=== PATIENT | male | born 1950 | race Caucasian/White ===

== ENCOUNTER 2021-05-09 05:32 | Emergency (ER) | payer OTHER, MEDICARE, SELFPAY ==
[2021-05-09 05:33] VITALS: TEMP 37.1; BMI 25.1
--- NOTE | 2021-05-09 05:34 | XRR_ITS ---
PROCEDURE INFORMATION: Exam: XR Chest Exam date and time: 05/09/2021 5:34 AM Age: 71 years old Clinical indication: Pain; Radiating; Prior surgery; Surgery date: 6+ months; Surgery type: Cabg, stents; Additional info: Cp TECHNIQUE: Imaging protocol: XR of the chest. Views: 1 view. COMPARISON: No relevant prior studies available. FINDINGS: Lungs: There is a well-defined oval density measuring 4.6 cm, projecting over the right mid lung. There is mildly increased lung markings. There is a small bilateral pleural effusions. No pneumothorax. Pleural spaces: See Lungs finding. Heart/Mediastinum: The patient is status post CABG. No cardiomegaly. Bones/joints: Median sternotomy changes seen. Degenerative changes of the spine seen. XR/XR chest 1V portable [id number] IMPRESSION: 1. Imaging findings suggestive of mild pulmonary congestion with small bilateral pleural effusions. 2. Well-defined density projecting over the right mid lung. Further evaluation with CT chest is recommended.
--- NOTE | 2021-05-09 05:35 | ECG_ITS ---
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 Measurements Intervals [place] Rate: 80 P: 64 [place]: 201 QRS: -16 QRSD: 123 T: 87 QT: 393 QTc: 456 Interpretive Statements SINUS RHYTHM WITH OCCASIONAL VENTRICULAR PREMATURE COMPLEXES MODERATE INTRAVENTRICULAR CONDUCTION DELAY [110+ ms QRS DURATION] NONSPECIFIC T-WAVE ABNORMALITY No previous ECG available for comparison Electronically Signed On 05-09-2021 12:07:59 CDT by Simone Swartz M.D. [email or web address] Nano/store/[id number] f
[2021-05-09 05:39] VITALS: BP 154/98; PULSE 81; O2SAT 98
[2021-05-09 05:58] LABS: Basophils % 0.3 %; Eosinophils # 0.1 10^3/uL (0.0-0.8); Eosinophils % 1.4 %; Hematocrit 39.1 % (42.0-52.0); Hemoglobin 13.1 g/dL (11.7-16.6); Lymphocytes # 2.5 10^3/uL (0.8-4.8); Lymphocytes % 28.5 %; Mean Corpuscular HGB Conc 33.5 g/dL (30.0-36.0); Mean Corpuscular Hemoglobin 33.9 pg (28.0-34.0); Monocytes # 0.8 10^3/uL (0.2-0.9); Monocytes % 9.2 %; Neutrophils # 5.26 10^3/uL (1.8-7.7); Neutrophils % 60.3 %; Nucleated Red Blood Cells % 0 %; Platelet Count 249 10^3/cmm (130-400); Red Blood Count 3.87 10^6/uL (4.1-5.3); Red Cell Distribution Width 12.7 % (12.1-15.1); White Blood Count 8.7 10^3/uL (4.0-10.0)
[2021-05-09 06:10] LABS: Alanine Aminotransferase 8 U/L (0-41); Alkaline Phosphatase 48 IU/L (40-130); Anion Gap 14.5 (5-19); Aspartate Amino Transferase 11 U/L (0-40); Blood Urea Nitrogen 15 mg/dL (8-23); Calcium 8.8 mg/dL (8.5-10.5); Carbon Dioxide 27 mmol/L (22-29); Chloride 102 mmol/L (98-107); Creatinine Clr Calc Pharmacy 87.8812; Globulin 1.6 g/dL (1.3-4.6); Glucose 124 mg/dL (65-115); Osmolality Calculated 292 mOsm/kg (285-295); Potassium 3.5 mmol/L (3.5-5.1); Sodium 140 mmol/L (136-145); Total Bilirubin 0.3 mg/dL (0.15-1.2); Total Protein 5.6 g/dL (6.6-8.7)
[2021-05-09 06:11] LABS: Troponin(5th) Baseline 34 ng/L (0-15)
--- NOTE | 2021-05-09 06:13 | W.ED.CHESTPA ---
HPI - Chest Pain General: Chief Complaint: Chest Pain Stated Complaint: CHEST PAIN Time Seen by Provider: 05/09/21 05:37 History of Present Illness: HPI narrative: CC: Chest Pain HPI: This is a [71] yo patient hx of HTN, CAD s/ p stent x 5/CABG, DM presenting to the ED w/ acute onset intermittent substernal chest pain x 2 hours. Pain is a very typical prior presentation of cardiac chest pain which started suddenly at 4am relieved with nitroglycerin. Pain is not tearing in nature and does not radiate to the back. Endorse nausea but has no associated with vomiting or decreased PO intake. Denies any recent sympathomimetic drug use. Patient denies any cough. Denies palpitations, syncope symptoms. Pain not positional. Norecent immobility, surgery, unilateral leg swelling, or prior PE. Patient denies any orthopnea, paroxysmal nocturnal dyspnea, weight gain, or increased leg swellings. Currently chest pain free. En route, rescue gave patient ASA 325mg. Onset: 2 hrs ago Duration: ongoing for the last 2 hrs Location: home Severity: moderate Review of Systems Narrative: Constitutional: No fever, no chills. HEENT: No vision changes, no sore throat. CV: +chest pain, no palpitations. PULM: No cough, +dyspnea. GI: No abdominal pain, no N/V/D. : No dysuria, no frequency, no hematuria. MSKEL: No arthralgias, no edema. SKIN: No new rashes, no lesions. NEURO: No headache, no focal weakness. HEME: No easy bleeding or bruising. PSYCH: No change in mood or affect. Physical Exam Narrative: EXAM NARRATIVE: Head: Atraumatic, normocephalic Eyes: PERRL, EOMI, conjunctiva without injection ENT: Throat without erythema, lesions or exudate, MMM NECK: Supple, trachea midline, no JVD LUNGS: LCTA CV: RRR, S1,S2, no murmurs, rubs, gallops. 2+ peripheral pulses in UEs ABDOMEN: Soft, nontender, nondistended, BS x4, no rigidity, no guarding, no rebound EXTREMITY: Normal ROM, no pitting edema, no calf tenderness to palpation SKIN: No rash or erythema NEURO: Awake and alert. No focal motor deficits. PSYCH: Normal mood and affect. Course Vital Signs: Vital signs: Vital Signs Temperature 98.8 F 05/09/21 05:33 Pulse Rate 78 05/09/21 07:01 Respiratory Rate 16 05/09/21 07:01 Blood Pressure 124/74 05/09/21 07:01 Pulse Oximetry 97 05/09/21 07:01 MDM - Chest Pain MDM Narrative: Medical decision making narrative: [71]yo patient w/ extensive cardiac hx presenting to the ED With acute substernal chest pain X 2 hrs with hx of similar prior pain. Currently mild chest pain. Patient receives most of his cardiac care at [facility] in [place], [place]. Given History And Exam today I have moderate to high suspicion for ACS/UA/NSTEMI. Today, I have suspicion for pneumothorax, pneumonia, pulmonary embolus, tamponade, aortic dissection or other emergent problem as a cause for this presentation. ECG did not show any signs of acute STEMI. Workup: ECG, CXR, CBC, BMP, Troponin Findings: ECG: No overt evidence of STEMI, hyperacute T waves, localizable STD or T wave inversions. No evidence of Brugada?s sign, delta wave, epsilon wave, significantly prolonged QTc, or malignant arrhythmia. No Q waves. Troponin: 34 unclear baseline. Other Labs unremarkable for emergent problems. CXR: Without PTX, PNA, or widened mediastinum HEART score: [7:04] On reassessment, the patient is currently chest pain free. S/p aspirin 325mg en route. Will defer antiplatelet and anticoagulation to the inpatient team given unknown basaeline troponin level. Initial troponin mildy elevated at 34. Pending repeat 2 hr troponin. HDS, AAOx3, no signs of respiratory distress, without refractory chest pain, no signs of malignant dysrhythmia on monitoring specialist (VT/VF). Disposition: Inpatient admission. Lab Data: Labs: Lab Results 05/09/21 05/09/21 05/09/21 Range/Units 05:20 05:20 05:20 WBC 8.7 (4.0-10.0) 10^3/ uL RBC 3.87 L (4.1-5.3) 10^6/u L Hgb 13.1 (11.7-16.6) g/dL Hct 39.1 L (42.0-52.0) % MCV 101.0 H (80-94) fL MCH 33.9 (28.0-34.0) pg MCHC 33.5 (30.0-36.0) g/dL RDW 12.7 (12.1-15.1) % Plt Count 249 (130-400) 10^3/c mm MPV 10.0 (7.4-10.4) fL Neut % (Auto) 60.3 % Lymph % (Auto) 28.5 % [place] % (Auto) 9.2 % Eos % (Auto) 1.4 % Baso % (Auto) 0.3 % Neut # (Auto) 5.26 (1.8-7.7) 10^3/u L Lymph # (Auto) 2.5 (0.8-4.8) 10^3/u L [place] # (Auto) 0.8 (0.2-0.9) 10^3/u L Eos # (Auto) 0.1 (0.0-0.8) 10^3/u L Baso # (Auto) 0.0 (0.0-0.1) 10^3/u L Nucleated RBC % (a uto) 0 % Nucleated RBCs # 0.0 /100WBC Sodium 140 (136-145) mmol/L Potassium 3.5 (3.5-5.1) mmol/L Chloride 102 (98-107) mmol/L Carbon Dioxide 27 (22-29) mmol/L Anion Gap 14.5 (5-19) BUN 15 (8-23) mg/dL Creatinine 0.5 L (0.7-1.2) mg/dL GFR Calculation Not Reportable Glucose 124 H (65-115) mg/dL Calculated Osmolal ity 292 (285-295) mOsm/k g Calcium 8.8 (8.5-10.5) mg/dL Total Bilirubin 0.3 (0.15-1.2) mg/dL AST 11 (0-40) U/L ALT 8 (0-41) U/L Alkaline Phosphata se 48 (40-130) IU/L Troponin T Baselin e 34 H (0-15) ng/L Total Protein 5.6 L (6.6-8.7) g/dL Albumin 4.0 (3.5-5.2) g/dL Globulin 1.6 (1.3-4.6) g/dL Imaging Data^: Other Imaging: Radiologist's impression: [facility] [facility].[place], [place] [address]QCbh ReportSigned Patient: Tejinder Rivera #: [id number]: [id number]#:[id number]/Sex: 71 / MADM Date: 05/09/21Loc: ERRoom/Bed:Attending Dr: Ordering Provider/Ordering MD: Halina Reece MD Date of Service: 05/09/21 Procedure(s): XR chest 1V portable [id number] Accession Number(s): [id number] Report Number: [id number] PROCEDURE INFORMATION: Exam: XR Chest Exam date and time: 05/09/2021 5:34 AM Age: 71 years old Clinical indication: Pain; Radiating; Prior surgery; Surgery date: 6+ months; Surgery type: Cabg, stents; Additional info: Cp TECHNIQUE: Imaging protocol: XR of the chest. Views: 1 view. COMPARISON: No relevant prior studies available. FINDINGS: Lungs: There is a well-defined oval density measuring 4.6 cm, projecting over the right mid lung. There is mildly increased lung markings. There is a small bilateral pleural effusions. No pneumothorax. Pleural spaces: See Lungs finding. Heart/Mediastinum: The patient is status post CABG. No cardiomegaly. Bones/joints: Median sternotomy changes seen. Degenerative changes of the spine seen. XR/XR chest 1V portable [id number] IMPRESSION: 1. Imaging findings suggestive of mild pulmonary congestion with small bilateral pleural effusions. 2. Well-defined density projecting over the right mid lung. Further evaluation with CT chest is recommended. Dictated By:Adela Sanchez By:Adela Sanchez Date/Time:05/09/21 0644DD/ Discharge Plan Discharge Patient Disposition: Admitted As Inpatient Clinical Impression: Chest pain, Angina pectoris, unstable Condition: Stable Coding Level of Care Code ED Polygraph Technician for Radha Gupta
--- NOTE | 2021-05-09 06:21 | ECG_ITS ---
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 Measurements Intervals [place] Rate: 84 P: 61 [place]: 208 QRS: -24 QRSD: 123 T: 86 QT: 395 QTc: 467 Interpretive Statements SINUS RHYTHM POSSIBLE LEFT ATRIAL ENLARGEMENT [-0.1mV P WAVE IN V1/V2] SEPTAL MYOCARDIAL INFARCTION [40+ ms Q WAVE IN V1/V2], OF INDETERMINATE AGE Compared to ECG 05/09/2021 05:32:56 Myocardial infarct finding now present Intraventricular conduction delay no longer present T-wave abnormality no longer present Electronically Signed On 05-09-2021 12:07:52 CDT by Simone Swartz M.D. [id number] f
[2021-05-09 07:01] VITALS: BP 124/74; PULSE 78; RESP 16; O2SAT 97
[2021-05-09 08:05] VITALS: BP 122/75; PULSE 81; RESP 18; O2SAT 96
[2021-05-09 08:26] VITALS: BP 122/75; PULSE 78; RESP 18; TEMP 37.1; O2SAT 96
[2021-05-09] MEDS: clopidogrel 300 mg Tablet 600 MG PO (08:36)
[2021-05-09] MEDS: heparin drip 25,000 UNIT/500 ML PREMIX 19.05 UNIT IV (08:37)
[2021-05-09] MEDS: heparin 5,000 unit/mL INJ 1 mL 5600 UNIT IVP (08:42)
[2021-05-09 09:05] VITALS: BP 145/74; PULSE 79; RESP 18; O2SAT 97
[2021-05-09 09:15] LABS: Troponin 5 2HR 39.63 ng/L (0-15); Troponin 5 2HR Delta 5.63 ABS# (0-10)
== END 2021-05-09 09:36 ==
PROVIDERS: Emergency Medicine; Emergency Provider Emergency Medicine
DX: R07.9 Chest pain, unspecified (principal); I20.0 Unstable angina
CPT/HCPCS: 71045; 80053; 84484; 85025; 93005; 96365; 96375; 99291; J1644

== ENCOUNTER 2021-06-30 13:41 | Outpatient (CLI) | payer OTHER, MEDICARE, SELFPAY ==
--- NOTE | 2021-06-30 13:47 | XR_ITS ---
WS: [id number] Exam: XR KUB [id number] Date/Time of Exam: 06/30/2021 1:48 PM Reason For Exam: CALCULUS OF KIDNEY There are several small calcifications superimposing both kidneys probably renal stones. No bowel obs truction or free air noted. No sign of organ enlargement. Degenerative change and mild dextroscoliosi s of the lumbar spine. XR/XR KUB [id number] IMPRESSION: 1. Small calcification superimpose both kidneys most likely representing renal calculi. 2. No acute abdominal process noted.
== END 2021-06-30 13:42 | disposition home or self-care (01) ==
LOC: RAD 13:46
PROVIDERS: PCP Internal Medicine; Visit Provider Urology
DX: N20.0 Calculus of kidney (principal)
CPT/HCPCS: 74018; 81003

== ENCOUNTER 2021-09-25 20:44 | Emergency (ER) | payer OTHER, MEDICARE, SELFPAY ==
[2021-09-25 20:45] VITALS: BP 139/102; PULSE 66; RESP 18; TEMP 36.6; O2SAT 94; BMI 24.3
--- NOTE | 2021-09-25 20:47 | XRR_ITS ---
PROCEDURE INFORMATION: Exam: XR Chest Exam date and time: 09/25/2021 8:47 PM Age: 71 years old Clinical indication: Pain; Angina pectoris; Prior surgery; Surgery date: 6+ months; Additional info: Cp TECHNIQUE: Imaging protocol: XR of the chest. Views: 1 view. COMPARISON: CR XR chest 1V portable [id number] 05/09/2021 5:38 AM FINDINGS: Lungs: Stable 4.5 cm oval density in the right mid lung. Linear atelectasis or scarring in the lung bases. Emphysema. Pleural spaces: Unremarkable. No pleural effusion. No pneumothorax. Heart/Mediastinum: Unremarkable. No cardiomegaly. Bones/joints: Median sternotomy changes. XR/XR chest 1V portable [id number] IMPRESSION: 1. No acute finding. 2. Stable oval density in the right mid lung. Correlation with the prior CT chest on 05/05/2021 is recommended. These images and report were not made available.
--- NOTE | 2021-09-25 20:47 | ECG_ITS ---
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 Measurements Intervals [place] Rate: 78 P: 48 [place]: 212 QRS: -14 QRSD: 138 T: 0 QT: 433 QTc: 496 Interpretive Statements SINUS RHYTHM WITH FIRST DEGREE AV BLOCK WITH OCCASIONAL VENTRICULAR PREMATURE COMPLEXES INTRAVENTRICULAR CONDUCTION DELAY [130+ ms QRS DURATION] SEPTAL MYOCARDIAL INFARCTION , PROBABLY OLD [40+ ms Q WAVE IN V1/V2] ST depression inferolateral leads, consider ischemia Compared to ECG 05/09/2021 06:26:35 First degree AV block now present Intraventricular conduction delay now present Myocardial infarct finding still present Electronically Signed On 09-27-2021 15:39:20 MEDICAL TECHNOLOGIST BLOOD BANK by Justyna Wooten M.D. [email or web address] Technologies[email or web address] [email or web address]/[id number]
[2021-09-25 21:01] LABS: Basophils # 0.1 10^3/uL (0.0-0.1); Basophils % 0.3 %; Eosinophils # 0.1 10^3/uL (0.0-0.8); Eosinophils % 0.6 %; Hemoglobin 12.5 g/dL (11.7-16.6); Lymphocytes # 2.2 10^3/uL (0.8-4.8); Lymphocytes % 11.6 %; Mean Corpuscular HGB Conc 33.8 g/dL (30.0-36.0); Mean Corpuscular Hemoglobin 33.3 pg (28.0-34.0); Mean Corpuscular Volume 98.7 fl (80-94); Mean Platelet Volume 10.5 fL (7.4-10.4); Monocytes # 1.6 10^3/uL (0.2-0.9); Monocytes % 8.5 %; Neutrophils % 78.5 %; Nucleated Red Blood Cells % 0 %; Platelet Count 222 10^3/cmm (130-400); Red Blood Count 3.75 10^6/uL (4.1-5.3); Red Cell Distribution Width 13.1 % (12.1-15.1); White Blood Count 18.7 10^3/uL (4.0-10.0)
[2021-09-25 21:16] LABS: INR 0.95 (0.8-1.2)
[2021-09-25 21:17] LABS: Partial Thromboplastin Time 26.8 SECONDS (23.9-36.7)
[2021-09-25 21:30] LABS: Troponin(5th) Baseline 456 ng/L (0-15)
[2021-09-25 21:31] LABS: Alanine Aminotransferase 11 U/L (0-41); Albumin Level 4.3 g/dL (3.5-5.2); Alkaline Phosphatase 45 IU/L (40-130); Anion Gap 14.8 (5-19); Aspartate Amino Transferase 36 U/L (0-40); Blood Urea Nitrogen 11 mg/dL (8-23); Calcium 8.4 mg/dL (8.5-10.5); Carbon Dioxide 26 mmol/L (22-29); Chloride 103 mmol/L (98-107); Creatine Phosphokinase 304 U/L (39-308); Globulin 1.9 g/dL (1.3-4.6); Glucose 128 mg/dL (65-115); NT Pro B Type Natriuretic Pept 1476 pg/mL (0-125); Osmolality Calculated 291 mOsm/kg (285-295); Potassium 3.8 mmol/L (3.5-5.1); Sodium 140 mmol/L (136-145); Total Bilirubin 0.3 mg/dL (0.15-1.2); Total Protein 6.2 g/dL (6.6-8.7)
[2021-09-25 21:36] VITALS: RESP 18; O2SAT 94
[2021-09-25] MEDS: morphine 4 mg/mL SDV 1 mL 2 MG IVP ×2 (21:36→22:29)
[2021-09-25] MEDS: nitroglycerin 1 gm/inch oint Pkt 1 INCH TOPICAL (21:36)
[2021-09-25] MEDS: ondansetron 2 mg/ML SDV 2 mL 4 MG IVP (21:37)
--- NOTE | 2021-09-25 21:56 | ED_ITS ---
HPI - Chest Pain General: Chief Complaint: Chest Pain Stated Complaint: CP Time Seen by Provider: 09/25/21 20:47 History of Present Illness: HPI narrative: 71-year-old gentleman with a history of heart disease. He has had a CABG, 5 stents, and has COPD as well. He presents with 2 to 3 days of chest discomfort, worsening this evening. He has had 6 nitroglycerin at home today with some improvement intermittently. Currently his pain is minimal. MD complaint: chest pain Pertinent past history: coronary artery disease Onset (ago): day(s) Timing of current episode: episodic Prior episodes: Yes Onset: during rest Pain location: substernal, left chest and right chest Pain radiation: none Quality: tightness and aching Relieving factors: nitroglycerin Exacerbating factors: nothing Associated symptoms: Reports diaphoresis, dyspnea and nausea; Deny abdominal pain, fever(s), leg edema, palpitations, syncope or vomiting Treatment prior to arrival: nitroglycerin Review of Systems Const: Reports: diaphoresis; Denies: fever(s) Card: Denies: palpitations or syncope Resp: Reports: dyspnea GI: Reports: nausea; Denies: abdominal pain or vomiting [facility] ED PFSH: Medical History Bilateral renal stones CHF (congestive heart failure) COPD (chronic obstructive pulmonary disease) Diabetes History of asbestosis HTN (hypertension) Hx of hydrocele Right ureteral stone Surgical History History of eyelid surgery Hx of heart artery stent Hx of prostate biopsy HAD 2 BOTH NEGATIVE Hx of vasectomy Family History Mother , AT AGE 83 Diabetes CAD (coronary artery disease) Father , IN HIS 60'S CAD (coronary artery disease) Social History Smoking and tobacco status: current every day smoker Alcohol intake: current Alcohol intake frequency: holidays/special occasions only Marital status: Current occupational status: retired Physical Exam Const: COMMON NORMALS: no acute distress, patient oriented x3 and alert HENMT: COMMON NORMALS: normocephalic and atraumatic HEAD & SCALP: normocephalic and atraumatic Eye: COMMON NORMALS: Equal, round and reactive pupils present and EOMs intact bilaterally PUPIL: Yes Equal, round and reactive pupils present Chest: COMMONS NORMALS: normal inspection of the chest Resp: COMMON NORMALS: normal respiratory effort, No use of accessory muscles and clear to auscultation bilaterally AUSCULTATION: clear to auscultation bilaterally Cardio: COMMON NORMALS: regular rate and regular rhythm RATE: regular rate RHYTHM: regular rhythm GI: COMMON NORMALS: Normal to inspection, nondistended, normoactive bowel sounds present, Soft to palpation and non-tender PALPATION: Yes Soft to palpation Extremity: COMMON NORMALS: normal to inspection and no pedal edema Neuro: COMMON NORMALS: patient oriented x3 SENSORIUM/ORIENTATION: Yes alert Course Consultations: Consultation #1: jovan Vital Signs: Vital signs: Vital Signs Temperature 97.9 F 09/25/21 20:45 Pulse Rate 66 09/25/21 20:45 Respiratory Rate 18 09/25/21 22:29 Blood Pressure 139/102 09/25/21 20:45 Pulse Oximetry 94 09/25/21 21:36 MDM - Chest Pain MDM Narrative: Medical decision making narrative: 71-year-old gentleman with a history of coronary disease. He has had chest discomfort. His EKG does not reveal any ST changes. He does have a very slightly widened QRS. His troponin at arrival is 450. His creatinine is 0.6. This obviously is not a normal [facility] troponin for this patient. His white blood cell count is 18.7. His chest x-ray shows no acute findings. There is a stable oval density in the right midlung. We have no Hotel Lobby Concierge capability this weekend at our hospital due to illness. The patient is [facility] transfer [facility] where he gets care. We will try to make this happen. He has received Plavix 300, Lovenox 70, and has already taken aspirin 325 today. He has Nitropaste on, and is received morphine. His pain is minimal to nothing now. [place] physician has accepted the patient to the cardiac unit. Awaiting a bed number for transfer. Lab Data: Labs: Lab Results 09/25/21 09/25/21 09/25/21 20:20 20:20 20:20 WBC 18.7 10^3/uL H 10 ^3/uL (4.0-10.0) RBC 3.75 10^6/uL L 10 ^6/uL (4.1-5.3) Hgb 12.5 g/dL g/dL (11.7-16.6) Hct 37.0 % L % (42.0-52.0) MCV 98.7 fl H fl (80-94) MCH 33.3 pg pg (28.0-34.0) MCHC 33.8 g/dL g/dL (30.0-36.0) RDW 13.1 % % (12.1-15.1) Plt Count 222 10^3/cmm 10^3 /cmm (130-400) MPV 10.5 fL H fL (7.4-10.4) Neut % (Auto) 78.5 % % Lymph % (Auto) 11.6 % % [place] % (Auto) 8.5 % % Eos % (Auto) 0.6 % % Baso % (Auto) 0.3 % % Neut # (Auto) 14.70 10^3/uL H 1 0^3/uL (1.8-7.7) Lymph # (Auto) 2.2 10^3/uL 10^3/ uL (0.8-4.8) [place] # (Auto) 1.6 10^3/uL H 10^ 3/uL (0.2-0.9) Eos # (Auto) 0.1 10^3/uL 10^3/ uL (0.0-0.8) Baso # (Auto) 0.1 10^3/uL 10^3/ uL (0.0-0.1) Nucleated RBC % (a uto) 0 % % Nucleated RBCs # 0.0 /100WBC /100W BC PT 13.00 SECONDS SEC ONDS (12.1-14.9) INR 0.95 (0.8-1.2) APTT 26.8 SECONDS SECO NDS (23.9-36.7) Sodium 140 mmol/L mmol/L (136-145) Potassium 3.8 mmol/L mmol/L (3.5-5.1) Chloride 103 mmol/L mmol/L (98-107) Carbon Dioxide 26 mmol/L mmol/L (22-29) Anion Gap 14.8 (5-19) BUN 11 mg/dL mg/dL (8-23) Creatinine 0.6 mg/dL L mg/dL (0.7-1.2) GFR Calculation Not Reportable Glucose 128 mg/dL H mg/dL (65-115) Calculated Osmolal ity 291 mOsm/kg mOsm/ kg (285-295) Calcium 8.4 mg/dL L mg/dL (8.5-10.5) Total Bilirubin 0.3 mg/dL mg/dL (0.15-1.2) AST 36 U/L U/L (0-40) ALT 11 U/L U/L (0-41) Alkaline Phosphata se 45 IU/L IU/L (40-130) Creatine Kinase 304 U/L U/L (39-308) Troponin T Baselin e Troponin T 120 Min [place] Delta Troponin T NT-Pro-B Natriuret Pep 1476 pg/mL H pg/m L (0-125) Total Protein 6.2 g/dL L g/dL (6.6-8.7) Albumin 4.3 g/dL g/dL (3.5-5.2) Globulin 1.9 g/dL g/dL (1.3-4.6) SARS-CoV-2 Ag (Rap id) 09/25/21 09/25/21 09/25/21 20:20 22:16 22:28 WBC RBC Hgb Hct MCV MCH MCHC RDW Plt Count MPV Neut % (Auto) Lymph % (Auto) [place] % (Auto) Eos % (Auto) Baso % (Auto) Neut # (Auto) Lymph # (Auto) [place] # (Auto) Eos # (Auto) Baso # (Auto) Nucleated RBC % (a uto) Nucleated RBCs # PT INR APTT Sodium Potassium Chloride Carbon Dioxide Anion Gap BUN Creatinine GFR Calculation Glucose Calculated Osmolal ity Calcium Total Bilirubin AST ALT Alkaline Phosphata se Creatine Kinase Troponin T Baselin e 456 ng/L H* ng/L (0-15) Troponin T 120 Min [place] 415.4 ng/L H ng/L (0-15) Delta Troponin T -40.6 ABS# L ABS# (0-10) NT-Pro-B Natriuret Pep Total Protein Albumin Globulin SARS-CoV-2 Ag (Rap id) Negative (Negative) Discharge Plan Discharge Patient Disposition: Xfer Short-Term Hosp Clinical Impression: Non-ST elevated myocardial infarction (non-STEMI) Condition: Fair Referrals: Donna Cao [Primary Care Provider] - Coding Level of Care Code ED Degreasing Wheel Operator for Chg Fwd Exam Comprehensive
[2021-09-25 22:29] VITALS: RESP 18
[2021-09-25] MEDS: enoxaparin 80 mg/0.8 mL Syringe 70 MG SUBCUT (22:29)
[2021-09-25] MEDS: clopidogrel 300 mg Tablet PO (22:29)
--- NOTE | 2021-09-25 22:47 | ECG_ITS ---
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 Measurements Intervals [place] Rate: 66 P: 61 [place]: 207 QRS: -9 QRSD: 135 T: 52 QT: 447 QTc: 469 Interpretive Statements SINUS RHYTHM WITH OCCASIONAL VENTRICULAR PREMATURE COMPLEXES POSSIBLE LEFT ATRIAL ENLARGEMENT [-0.1mV P-WAVE IN V1/V2] INTRAVENTRICULAR CONDUCTION DELAY [130+ ms QRS DURATION] SEPTAL MYOCARDIAL INFARCTION , OF INDETERMINATE AGE [40+ ms Q WAVE IN V1/V2] ST depression inferolateral leads, consider ischemia Compared to ECG 09/25/2021 20:53:13 Ventricular premature complex(es) now present First degree AV block no longer present Myocardial infarct finding still present Electronically Signed On 09-27-2021 22:52:51 ARTS MANAGER by Justyna Wooten M.D. [id number]
[2021-09-25 22:51] LABS: Troponin 5 2HR 415.4 ng/L (0-15)
[2021-09-25 22:58] LABS: SARS Covid-2 Antigen Negative (Negative)
[2021-09-26 00:32] VITALS: BP 189/91; PULSE 90; RESP 24; TEMP 36.2; O2SAT 97
--- NOTE | 2021-09-26 02:19 | PC.NURSE ---
transported to [facility] via EMS transport. respirations even equal and unlabored NAD. all belongings sent with patient.
[2021-09-26 03:10] LABS: Troponin 5 6HR 409.2 ng/L (0-15)
== END 2021-09-26 02:20 | disposition short-term general hospital (02) ==
PROVIDERS: Emergency Provider Emergency Medicine; PCP Internal Medicine
DX: I21.4 Non-ST elevation (NSTEMI) myocardial infarction (principal); I11.0 Hypertensive heart disease with heart failure; I50.9 Heart failure, unspecified; J44.9 Chronic obstructive pulmonary disease, unspecified; E11.9 Type 2 diabetes mellitus without complications; F17.210 Nicotine dependence, cigarettes, uncomplicated; Z20.822 Contact with and (suspected) exposure to COVID-19
CPT/HCPCS: 71045; 80053; 82550; 83880; 84484; 85025; 85610; 85730; 87426; 93005; 96372; 96374; 96375; 96376; 99284; 99291; 99292; J1650; J2270; J2405

== ENCOUNTER 2021-11-30 13:35 | Outpatient (RCR) | payer OTHER, MEDICARE, SELFPAY | END 2021-12-30 23:59 | disposition home or self-care (01) | LOC: CR 13:35 | PROVIDERS: PCP Internal Medicine; Visit Provider Internal Medicine | DX: I25.2 Old myocardial infarction (principal) | CPT/HCPCS: 93798 ==

== ENCOUNTER 2022-01-04 08:43 | Outpatient (RCR) | payer OTHER, MEDICARE, SELFPAY | END 2022-01-29 23:59 | disposition home or self-care (01) | LOC: CR 08:43 | PROVIDERS: PCP Internal Medicine; Visit Provider Internal Medicine | DX: I25.2 Old myocardial infarction (principal) | CPT/HCPCS: 93798 ==

== ENCOUNTER 2022-01-10 07:46 | Outpatient (CLI) | payer OTHER, MEDICARE, SELFPAY ==
[2022-01-10 08:38] LABS: Blood Urea Nitrogen 25 mg/dL (8-23)
== END 2022-01-10 07:47 | disposition home or self-care (01) ==
LOC: RAD 07:47
PROVIDERS: PCP Internal Medicine; Visit Provider Urology
DX: R31.0 Gross hematuria (principal)
CPT/HCPCS: 82565; 84520

== ENCOUNTER 2022-01-11 09:23 | Outpatient (CLI) | payer OTHER, SELFPAY ==
--- NOTE | 2022-01-11 09:41 | CT_ITS ---
WS: [id number] CT ABDOMEN AND PELVIS WITH AND WITHOUT CONTRAST (CT urogram) HISTORY: GROSS,HEMATURIA TECHNIQUE: Unenhanced 5 mm axial imaging first performed through the abdomen. Post contrast imaging t hrough the abdomen and pelvis. Oral contrast has not been provided. Sagittal and coronal reformats a re submitted. All CT scans at [facility] use at least one of these dose optimization techniqu es: automated exposure control; mA and/or kV adjustment per patient size (includes targeted exams whe re dose is matched to clinical indication); or iterative reconstruction. CONTRAST: Omnipaque 300; 120 mL IV. DLP: 3034.83 mGy.cm COMPARISON: 05/05/2021 Hyperinflated lungs from emphysema and pleural plaques at the bases. Stable 6 mm noncalcified nodule at the RIGHT lung base. Additional areas of atelectasis and rounded atelectasis at the LEFT lung base . Heart is enlarged. There are cardiac lymph node measures 14 mm and stable. RIGHT kidney: 12.5 cm in length. Nonobstructing calcifications and vascular calcifications are noted. No ureteral dilatation. Normal renal enhancement. There is good excretion into the renal pelvis. No uroepithelial filling defect. Mild tortuosity of the ureter. Ureter enters the bladder normally. LEFT kidney: 11.3 cm in length. Mild perinephric stranding. Vascular calcifications and nonobstructin g renal pelvic calcifications. The largest measures 10 mm in the lower pole. Exophytic cyst from the superior pole measures 18 x 14 mm. No ureteral calcification. Normal enhancement of the renal cortex. Good excretion from the renal pelvis on the delayed imaging. No uroepithelial filling defect. There is very slight narrowing of the proximal ureter but no associated mass. Urinary bladder is well distended on the delayed imaging. There is very mild diffuse bladder wall thi ckening. Prostate gland is significantly enlarged and lobulated encroaching into the bladder. Blush-like area of enhancement along the inferior RIGHT lobe of the liver normalizes to the remaining liver parenchyma on the delayed imaging. This is probably a small hemangioma. Portal vein is normal. Gallbladder and spleen are negative. No adrenal mass. Bilateral adrenal nodules. The largest in the RIGHT adrenal measures 13 mm. No change since the prior exam. Extensive atherosclerosis within the ab dominal aorta. There is calcified plaque and intimal thickening. There is a focal ulcerated plaque or short dissection in the infrarenal aorta. Distal aorta becomes stenotic. Heavy calcified plaque cont inues into the iliac arteries bilaterally. 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 Near complete oc clusion of the LEFT femoral artery anterior to the femoral head. No adenopathy or ascites within the abdomen. There is extensive calcified plaque within the celiac axis and SMA. Multifocal areas of sten osis. No ischemic changes within the bowel. No adenopathy. No GI tract obstruction. 50%, T12 anterior compression fracture. Advanced degenerative changes at L5-S1. CT/CT abdomen pelvis wo/w [id number] IMPRESSION: 1. No renal mass or obstruction. 2. There are bilateral nonobstructing renal calcifications and vascular calcif ications. 3. Simple cyst upper pole LEFT kidney measures 18 x 14 mm. 4. No uroepithelial lesions or obstruction. 5. Markedly enlarged heterogeneously enhancing prostate gland encroaching into the urinary bladder. 6. Severe atherosclerotic changes within the abdominal aorta extending into th e iliac and femoral arteries. At least moderate stenosis involving the distal a bdominal aorta at the bifurcation and near complete occlusion of the LEFT femor al artery. 7. 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 8. No change in the bilateral lower lobe areas of atelectasis, nodules and ple ural plaques since 05/05/2021.
== END 2022-01-11 09:24 | disposition home or self-care (01) ==
PROVIDERS: PCP Internal Medicine; Visit Provider Urology
DX: R31.0 Gross hematuria (principal); N20.0 Calculus of kidney; N28.1 Cyst of kidney, acquired; N40.0 Benign prostatic hyperplasia without lower urinary tract symptoms; I72.3 Aneurysm of iliac artery; J98.11 Atelectasis
CPT/HCPCS: 74178; Q9967

== ENCOUNTER 2022-01-29 04:13 | Emergency (ER) | payer OTHER, MEDICARE, SELFPAY ==
[2022-01-29 04:14] VITALS: BP 150/101; PULSE 84; RESP 20; TEMP 36.8; O2SAT 96; BMI 24.7
--- NOTE | 2022-01-29 04:33 | ECG_ITS ---
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 Measurements Intervals [place] Rate: 86 P: 64 ME: 240 QRS: 7 QRSD: 139 T: 91 QT: 408 QTc: 489 Interpretive Statements SINUS RHYTHM WITH FIRST DEGREE AV BLOCK WITH FREQUENT VENTRICULAR PREMATURE COMPLEXES Possible old septal myocardial infarction Diffuse ST-T wave changes consider ischemia POSSIBLE LEFT ATRIAL ENLARGEMENT [-0.1mV P-WAVE IN V1/V2] INTRAVENTRICULAR CONDUCTION DELAY [130+ ms QRS DURATION] Compared to ECG 09/25/2021 23:07:53 First degree AV block now present Electronically Signed On 01-29-2022 8:16:31 CDT by Michael Gil M.D. [id number]
--- NOTE | 2022-01-29 04:33 | XRR_ITS ---
PROCEDURE INFORMATION: Exam: XR Chest Exam date and time: 01/29/2022 4:38 AM Age: 71 years old Clinical indication: Shortness of breath; Prior surgery; Surgery type: Cabg; Patient HX: C/O worsening SOB. History of copd and chf. TECHNIQUE: Imaging protocol: XR of the chest. Views: 1 view. COMPARISON: CR (CHEST, ) 09/25/2021 8:53 PM FINDINGS: Lungs: Strandy and linear opacities are present in the mid lower hemithoraces bilaterally likely representing chronic parenchymal and pleural scarring. There is mild indistinctness of the pulmonary vasculature, findings that may represent mild pulmonary edema. Pleural spaces: There are calcified pleural plaques present posteriorly. Heart/Mediastinum: Unremarkable. No cardiomegaly. Bones/joints: Unremarkable. XR/XR chest 1V portable [id number] IMPRESSION: 1. Calcified pleural plaques present posteriorly. 2. Mild indistinctness of the pulmonary vasculature could represent mild pulmonary edema. 3. Strandy opacities present in the mid lower hemithoraces may represent atelectasis versus parenchymal or pleural scarring.
[2022-01-29 04:43] LABS: Basophils % 0.3 %; Eosinophils # 0.1 10^3/uL (0.0-0.8); Eosinophils % 0.7 %; Hematocrit 34.8 % (42.0-52.0); Hemoglobin 11.1 g/dL (11.7-16.6); Lymphocytes # 2.4 10^3/uL (0.8-4.8); Lymphocytes % 17.8 %; Mean Corpuscular HGB Conc 31.9 g/dL (30.0-36.0); Mean Corpuscular Hemoglobin 33.1 pg (28.0-34.0); Mean Corpuscular Volume 103.9 fl (80-94); Mean Platelet Volume 10.4 fL (7.4-10.4); Monocytes # 1.2 10^3/uL (0.2-0.9); Monocytes % 8.6 %; Neutrophils # 9.72 10^3/uL (1.8-7.7); Neutrophils % 72.3 %; Nucleated Red Blood Cells % 0 %; Platelet Count 234 10^3/cmm (130-400); Red Blood Count 3.35 10^6/uL (4.1-5.3); Red Cell Distribution Width 13.5 % (12.1-15.1); White Blood Count 13.5 10^3/uL (4.0-10.0)
[2022-01-29] MEDS: ipratropium-albuterol 3 mL Neb INHALATION (04:43)
[2022-01-29 04:45] VITALS: BP 124/80; PULSE 72; PULSE 81; RESP 15; RESP 23; O2SAT 93; O2SAT 96
[2022-01-29] MEDS: FUROsemide 10 mg/mL SDV 10mL 60 MG IVP (04:48)
[2022-01-29 04:50] VITALS: PULSE 83
[2022-01-29 05:05] LABS: Lactic Sepsis W/Reflex 0.9 mmol/L (0.5-2.2)
--- NOTE | 2022-01-29 05:07 | ED_ITS ---
HPI - SOB/Dyspnea General: Chief Complaint: Shortness of Breath/Dyspnea Stated Complaint: RESP. DISTRESS Time Seen by Provider: 01/29/22 04:16 Source: patient History of Present Illness: HPI Narrative: 71-year-old gentleman with a history of coronary disease, heart failure, and COPD. He states that [facility]. He received some of the yesterday but not all of them. He is noted progressive shortness of breath over the last 24 hours waking him from sleep this morning. He denies any significant chest pain. He denies fever. He notes he feels swollen in his belly but not his legs. MD elicited complaint: shortness of breath Pertinent past history: COPD and congestive heart failure Onset (ago): hour(s) Context: medication noncompliance and other Timing: constant and progressively worsening Severity: moderate Exacerbating factors: lying flat and exertion Relieving factors: oxygen and bronchodilators Known history of: COPD and congestive heart failure Associated symptoms: Reports cough; Deny abdominal pain, chest congestion, chest pain or fever(s) Treatment prior to arrival: oxygen, bronchodilator and other (Solu-Medrol 125 mg) Review of Systems Const: Denies: fever(s) or chills ENMT: Denies: throat pain Card: Denies: chest pain Resp: Reports: dyspnea and productive cough (Clear sputum); Denies: chest congestion GI: Denies: abdominal pain PFSH ED PFSH: Medical History Bilateral renal stones CHF (congestive heart failure) COPD (chronic obstructive pulmonary disease) Diabetes History of asbestosis HTN (hypertension) Hx of hydrocele Right ureteral stone Surgical History History of eyelid surgery Hx of heart artery stent Hx of prostate biopsy HAD 2 BOTH NEGATIVE Hx of vasectomy Family History Mother , AT AGE 83 Diabetes CAD (coronary artery disease) Father , IN HIS 60'S CAD (coronary artery disease) Social History Smoking and tobacco status: current every day smoker Alcohol intake: current Alcohol intake frequency: holidays/special occasions only Marital status: Current occupational status: retired Physical Exam Const: GENERAL APPEARANCE: cooperative and frail appearing HENMT: COMMON NORMALS: normocephalic, atraumatic and Normal external nose present HEAD & SCALP: normocephalic and atraumatic FACE & SINUS: normal facial exam NOSE: Normal external nose present and Normal nares present Eye: COMMON NORMALS: Equal, round and reactive pupils present and EOMs intact bilaterally PUPIL: Yes Equal, round and reactive pupils present Chest: COMMONS NORMALS: normal inspection of the chest Resp: EFFORT & INSPECTION: Yes tachypneic (Mild), No labored and No tracheal deviation AUSCULTATION: rhonchi and wheezes Cardio: COMMON NORMALS: regular rate and Peripheral pulses 2+ throughout RATE: regular rate RHYTHM: abnormal rhythm irregularly irregular PERIPHERAL PULSES: Peripheral pulses 2+ throughout GI: COMMON NORMALS: Normal to inspection, nondistended, normoactive bowel sounds present Extremity: COMMON NORMALS: no pedal edema Neuro: STAN COMA SCALE: document GCS findings Stan coma scale eye opening: Spontaneous Stan coma scale verbal response: Orientated Stan coma scale motor response: Obey commands [place] coma scale total score: 15 Course Vital Signs: Vital signs: Vital Signs Temperature 98.3 F 01/29/22 04:14 Pulse Rate 81 01/29/22 05:45 Respiratory Rate 13 01/29/22 05:45 Blood Pressure 125/70 01/29/22 05:45 Pulse Oximetry 93 01/29/22 05:45 MDM - SOB/Dyspnea Medical Decision Making Chest x-ray shows some mild pulmonary edema. The patient has had 60 mg of IV Lasix and is starting to diurese. He is on room air satting 94%. He feels much better. White blood cell count is 13.5, hemoglobin 11.1. BMP is normal. His creatinine is 0.8. He has received all of his medicine essentially now. We will place him on 3 days of added diuresis for the pulmonary edema. The patient would like to go home. Lab Data : 01/29/22 04:20 01/29/22 04:20 Labs/Radiology: Radiology Impressions Chest X-Ray 01/29/22 04:33 IMPRESSION: 1. Calcified pleural plaques present posteriorly. 2. Mild indistinctness of the pulmonary vasculature could represent mild pulmonary edema. 3. Strandy opacities present in the mid lower hemithoraces may represent atelectasis versus parenchymal or pleural scarring. Laboratory Results WBC 13.5 10^3/uL (4.0-10.0) H 01/29/22 04:20 RBC 3.35 10^6/uL (4.1-5.3) L 01/29/22 04:20 Hgb 11.1 g/dL (11.7-16.6) L 01/29/22 04:20 Hct 34.8 % (42.0-52.0) L 01/29/22 04:20 MCV 103.9 fl (80-94) H 01/29/22 04:20 MCH 33.1 pg (28.0-34.0) 01/29/22 04:20 MCHC 31.9 g/dL (30.0-36.0) 01/29/22 04:20 RDW 13.5 % (12.1-15.1) 01/29/22 04:20 Plt Count 234 10^3/cmm (130-400) 01/29/22 04:20 MPV 10.4 fL (7.4-10.4) 01/29/22 04:20 Neut % (Auto) 72.3 % 01/29/22 04:20 Lymph % (Auto) 17.8 % 01/29/22 04:20 [place] % (Auto) 8.6 % 01/29/22 04:20 Eos % (Auto) 0.7 % 01/29/22 04:20 Baso % (Auto) 0.3 % 01/29/22 04:20 Neut # (Auto) 9.72 10^3/uL (1.8-7.7) H 01/29/22 04:20 Lymph # (Auto) 2.4 10^3/uL (0.8-4.8) 01/29/22 04:20 [place] # (Auto) 1.2 10^3/uL (0.2-0.9) H 01/29/22 04:20 Eos # (Auto) 0.1 10^3/uL (0.0-0.8) 01/29/22 04:20 Baso # (Auto) 0.0 10^3/uL (0.0-0.1) 01/29/22 04:20 Nucleated RBC % (auto) 0 % 01/29/22 04:20 Nucleated RBCs # 0.0 /100WBC 01/29/22 04:20 Sodium 142 mmol/L (136-145) 01/29/22 04:20 Potassium 4.1 mmol/L (3.5-5.1) 01/29/22 04:20 Chloride 105 mmol/L (98-107) 01/29/22 04:20 Carbon Dioxide 25 mmol/L (22-29) 01/29/22 04:20 Anion Gap 16.1 (5-19) 01/29/22 04:20 BUN 15 mg/dL (8-23) 01/29/22 04:20 Creatinine 0.8 mg/dL (0.7-1.2) 01/29/22 04:20 GFR Calculation Not Reportable 01/29/22 04:20 Glucose 123 mg/dL (65-115) H 01/29/22 04:20 Calculated Osmolality 296 mOsm/kg (285-295) H 01/29/22 04:20 Lactic Acid 0.9 mmol/L (0.5-2.2) 01/29/22 04:40 Calcium 9.0 mg/dL (8.5-10.5) 01/29/22 04:20 Magnesium 1.9 mg/dL (1.7-2.3) 01/29/22 04:20 Total Bilirubin 0.2 mg/dL (0.15-1.2) 01/29/22 04:20 AST 17 U/L (0-40) 01/29/22 04:20 ALT 17 U/L (0-41) 01/29/22 04:20 Alkaline Phosphatase 60 IU/L (40-130) 01/29/22 04:20 NT-Pro-B Natriuret Pep 2975 pg/mL (0-125) H 01/29/22 04:20 Total Protein 6.5 g/dL (6.6-8.7) L 01/29/22 04:20 Albumin 4.5 g/dL (3.5-5.2) 01/29/22 04:20 Globulin 2.0 g/dL (1.3-4.6) 01/29/22 04:20 Discharge Plan Discharge Patient Disposition: Home Clinical Impression: Pulmonary edema Condition: Stable Prescriptions: New Lasix 40 mg tablet 40 mg PO DAILY Qty: 3 0RF No Action aspirin 325 mg tablet 325 mg PO DAILY 0RF atorvastatin 40 mg tablet 40 mg PO DAILY 0RF ranolazine 500 mg tablet extended release 12 hr 500 mg PO BID 0RF cholecalciferol (vitamin D3) 25 mcg (1,000 unit) capsule 25 mcg PO DAILY 0RF ascorbic acid (vitamin C) 500 mg capsule, extended release 500 mg PO DAILY 0RF acetaminophen 500 mg capsule 500 mg PO Q6H PRN0RF albuterol 2 puff inhalation PRN 0RF amlodipine 10 mg PO DAILY 0RF budesonide 2 puff inhalation BID 0RF ezetimibe 10 mg PO DAILY 0RF isosorbide mononitrate 90 mg PO DAILY 0RF lisinopril 40 mg PO DAILY 0RF nitroglycerin 0.4 mg PO PRN 0RF omeprazole 20 mg PO DAILY 0RF spironolactone 12.5 mg PO DAILY 0RF carvedilol 25 mg PO BID 0RF Rx Instructions: TAKES 1 1/2 TABLETS BID Discharge Orders: Discharge ED (Routine); Ordered 01/29/22 Ordered By: Stu Adhikari Referrals: Donna Cao [Primary Care Provider] - 4-7 days Patient Instructions: Pulmonary Edema (ED) Activity Restrictions/Additional Instructions: Take the extra water pill for the next 3 days as directed. Started tomorrow. Return to the ER for chest discomfort, worsening shortness of breath despite treatment, fever greater than 100, mental status changes, or any other concerning symptoms. Coding Level of Care Code ED Reprographics Technician for Radha Fwnany Exam Comprehensive
[2022-01-29 05:10] LABS: Alanine Aminotransferase 17 U/L (0-41); Albumin Level 4.5 g/dL (3.5-5.2); Alkaline Phosphatase 60 IU/L (40-130); Anion Gap 16.1 (5-19); Aspartate Amino Transferase 17 U/L (0-40); Blood Urea Nitrogen 15 mg/dL (8-23); Carbon Dioxide 25 mmol/L (22-29); Chloride 105 mmol/L (98-107); Glucose 123 mg/dL (65-115); Magnesium 1.9 mg/dL (1.7-2.3); NT Pro B Type Natriuretic Pept 2975 pg/mL (0-125); Osmolality Calculated 296 mOsm/kg (285-295); Potassium 4.1 mmol/L (3.5-5.1); Sodium 142 mmol/L (136-145); Total Bilirubin 0.2 mg/dL (0.15-1.2); Total Protein 6.5 g/dL (6.6-8.7)
[2022-01-29 05:15] VITALS: BP 128/58; PULSE 79; RESP 21; O2SAT 94
[2022-01-29 05:45] VITALS: BP 125/70; PULSE 81; RESP 13; O2SAT 93
[2022-01-29 06:17] VITALS: BP 127/75; PULSE 87; RESP 21; O2SAT 94
== END 2022-01-29 06:17 | disposition home or self-care (01) ==
PROVIDERS: Emergency Provider Emergency Medicine; PCP Internal Medicine
DX: J81.1 Chronic pulmonary edema (principal); I25.10 Atherosclerotic heart disease of native coronary artery without angina pectoris; J44.9 Chronic obstructive pulmonary disease, unspecified; Z91.128 Patient's intentional underdosing of medication regimen for other reason; F17.210 Nicotine dependence, cigarettes, uncomplicated; Z79.51 Long term (current) use of inhaled steroids
CPT/HCPCS: 71045; 80053; 83605; 83735; 83880; 85025; 93005; 94640; 96374; 99284; J1940

== ENCOUNTER 2022-03-14 12:17 | Outpatient (CLI) | payer OTHER, MEDICARE, SELFPAY ==
--- NOTE | 2022-03-14 12:30 | XR_ITS ---
WS: [id number] KUB, AP view, 03/14/2022 Clinical Data: RIGHT URETERAL STONE Comparison: None. Findings: No abnormal intraabdominal masses are seen. There is no dilatated small bowel or evidence of obstruct ion. There are multiple bilateral calcifications overlying both kidneys. There is a dextroscoliosis with a n old compression fracture of T12. XR/XR KUB [id number] Impression: Bilateral renal calcifications.
== END 2022-03-14 12:18 | disposition home or self-care (01) ==
LOC: RAD 12:21
PROVIDERS: PCP Internal Medicine; Visit Provider Urology
DX: N20.1 Calculus of ureter (principal); N20.0 Calculus of kidney
CPT/HCPCS: 74018; 81003

== ENCOUNTER 2022-05-25 13:14 | Outpatient (CLI) | payer OTHER, SELFPAY ==
--- NOTE | 2022-05-25 13:25 | CT_ITS ---
WS: [id number] CT ABDOMEN AND PELVIS WITH AND WITHOUT CONTRAST (CT urogram). HISTORY: GROSS HEMATURIA TECHNIQUE: Unenhanced 3 mm axial imaging first performed through the abdomen. Post contrast imaging t hrough the abdomen and pelvis, early and delayed phases. Oral contrast has not been provided. Sagitt al and coronal reformats are submitted. Delayed MIP imaging. All CT scans at [facility] use at least one of these dose optimization techniques: automated exposure control; mA and/or kV adjustment per patient size (includes targeted exams where dose is matched to clinical indication); or iterativ e reconstruction. CONTRAST: Visipaque 320; 100 mL IV. DLP: 3121.53 mGy.cm COMPARISON: 01/11/2022, 05/05/2021 Emphysematous changes at the lung bases. Focal area of rounded atelectasis at the LEFT lung base is s table. Heart size is slightly enlarged. Pericardial calcification is reidentified. No effusions. Toño ed atherosclerotic changes in the descending aorta to the aortic hiatus. Benign lymph node in the per icardiac fat. Kidneys are normal size. Bilateral scattered calcifications are identified within each kidney. The la rgest calcification lower pole LEFT kidney is ovoid with a maximum diameter of 8.8 mm. There is mild bilateral perinephric stranding. No hydronephrosis. Vascular calcifications in the central LEFT renal pelvis. 16 mm cyst upper pole LEFT kidney. No uroepithelial mass identified. There is narrowing invo lving the mid LEFT ureter at the level of L4. This may be as inflammatory stricture. No mass identifi ed. The distal ureters are not completely distended with excretory contrast. No obstruction of either ureter. Prostate gland is enlarged and heterogeneous measuring 6.1 x 7.0 x 6.6 cm. There is encroachment into the urinary bladder. The ureters into the urinary bladder very close to the enlarged prostate gland. No enhancing lesions are identified within the bladder. No additional asymmetry of thickening of the wall. Normal liver. Normal portal vein. Normal gallbladder. Normal size spleen with granulomata. No adrenal mass. Normal pancreas. Stomach is nondistended. No small bowel obstruction. The appendix is normal. No inflammatory changes in the colon. No ascites or adenopathy. Abdominal aorta: Moderate atherosclerotic plaque with no aneurysm. Asymmetric wall calcification and mural thickening. Short segment dissection in the suprarenal aorta. Moderate stenosis involving the a ortic bifurcation into the proximal iliac arteries. Mild dilatation of the LEFT iliac artery unchange d. Extensive calcification continues into the femoral arteries. Very heavy dense calcified plaque at the femoral arteries consistent with significant stenosis. Greater than 70% stenosis bilaterally. T12 30% anterior compression fracture. No osteoblastic or osteolytic lesions. CT/CT abdomen pelvis wo/w [id number] IMPRESSION: 1. No solid renal mass or uroepithelial lesion identified. 2. Short segment stricture in the mid LEFT ureter. No associated mass. This ma y be due to peristalsis of the ureter and contraction or short segment strictur e. 3. Markedly enlarged prostate gland encroaching into the base of the urinary b ladder. 4. Ureters into the urinary bladder very close to the enlarged prostate gland. No ureteral obstruction. 5. Mild diffuse bladder wall thickening is probably due to chronic outlet obst ruction. 6. Stable rounded atelectasis at the LEFT lung base. 7. Bilateral renal calculi, largest lower pole LEFT kidney measures 8.8 mm. 8. Upper pole LEFT renal cyst. 9. Extensive atherosclerosis abdominal aorta extending into the iliac and femo ral arteries. Significant stenosis at the aortic bifurcation and also the femor al arteries bilaterally. High-grade stenosis is not near-complete occlusion inv olving the LEFT femoral artery.
[2022-05-25 14:20] LABS: Blood Urea Nitrogen 34 mg/dL (8-23)
[2022-05-25] MEDS: iodixanol 320 mg/mL 100mL Btl IV (14:59)
== END 2022-05-25 13:15 | disposition home or self-care (01) ==
LOC: RAD 13:15
PROVIDERS: PCP Internal Medicine; Visit Provider Urology
DX: R31.0 Gross hematuria (principal); J98.11 Atelectasis; N20.0 Calculus of kidney; N28.1 Cyst of kidney, acquired; I70.0 Atherosclerosis of aorta; I35.0 Nonrheumatic aortic (valve) stenosis; N13.5 Crossing vessel and stricture of ureter without hydronephrosis; N40.0 Benign prostatic hyperplasia without lower urinary tract symptoms
CPT/HCPCS: 74178; 82565; 84520

== ENCOUNTER 2022-07-20 07:42 | Outpatient (CLI) | payer OTHER, SELFPAY ==
--- NOTE | 2022-07-20 07:45 | CT_ITS ---
WS: [id number] CTA ABDOMINAL AORTA WITH RUNOFF TECHNIQUE: Contrast enhanced CTA of the abdominal aorta with bilateral lower extremity runoff. Multip lanar reformatted images were obtained. MIP reformats were also reviewed. CLINICAL INFORMATION: PAD COMPARISON: CT abdomen pelvis 2021 DLP: 1955.[address] scans at [facility] use at least one of these dose optimization techniques: automated e xposure control; mA and/or kV adjustment per patient size (includes targeted exams where dose is matc hed to clinical indication); or iterative reconstruction. FINDINGS: Moderate emphysematous changes. Round Atelectasis LEFT lung base. Cardiomegaly. Thoracic aortic calcification. No hydronephrosis in e ither kidney. Normal renal parenchymal enhancement. Stable 16 mm cyst upper pole LEFT kidney. Heterog eneously enhancing enlarged prostate measuring 6 x 7 cm. Indentation on the urinary bladder. Normal l iver. Normal gallbladder. Splenic granulomas. Small RIGHT adrenal adenoma. Chronic anterior wedging T 12. Nonobstructing bilateral renal calculi. Sternotomy. CABG Normal caliber abdominal aorta. No abdominal aortic aneurysm. Celiac and SMA are patent. Mild stenosi s at the celiac origin. Proximal renal arteries are patent. Peripheral mural thrombus with approximat mihir 50% narrowing involving the renal and proximal infrarenal abdominal aorta. RIGHT: Severe stenosis of the common iliac origin with dense calcification. Common iliac artery remai ns patent. External and internal iliac arteries are patent. 50 percent stenosis involving the common femoral artery with dense peripheral calcification. Superficial femoral artery is patent with mild to moderate segmental calcified stenosis. Superficial femoral artery is patent to the adductor hiatus. Moderate stenosis at the deep femoral artery origin which remains patent. Moderate segmental stenosis involving the popliteal artery with approximately 40% stenosis above the knee. Popliteal artery is p atent to the trifurcation. Dense calcification tibioperoneal trunk. Three-vessel runoff to the ankle. LEFT: Mild stenosis of the LEFT common iliac artery origin which remains patent. LEFT common iliac ar he is patent. Dense calcification internal iliac artery. External iliac artery is patent. Dense urszula cification with severe stenosis LEFT common femoral artery with high-grade stenosis. Moderate stenosi s LEFT superficial femoral artery origin which remains patent. Deep femoral artery is patent. Short s egment occlusion/near occlusion superficial femoral artery in the proximal thigh. Reconstitution just distal to the stenosis. SFA remains patent to the adductor hiatus. High-grade stenosis in popliteal artery just above the knee in the popliteal fossa. Dense calcification. Popliteal artery is otherwis e patent to the trifurcation with dense calcification trifurcation and tibioperoneal trunk with moder ate stenosis. Three-vessel runoff to the ankle. CT/CT angio abd aorta runof [id number] IMPRESSION: 1. RIGHT: High grade stenosis RIGHT common iliac artery origin. 50% stenosis i nvolving the RIGHT common femoral artery. Superficial femoral artery and poplit eal arteries remain patent. 40% stenosis popliteal artery [id number]. Dense calcification of the tibioperoneal trunk. Three-vessel runoff to the ankle. 2. LEFT: Severe stenosis LEFT common femoral artery with extensive calcified atheromatous plaque. Moderate stenosis of the SFA origin which remains patent. High-grade stenosis with occlusion/near occlusion SFA in the proximal thigh. Th is reconstitutes shortly after and remains patent to the adductor hiatus. High- grade stenosis popliteal artery in the popliteal fossa just above the knee. Mod erate stenosis in the distal popliteal artery extending to the trifurcation. De nse calcification tibioperoneal trunk. Three-vessel runoff to the ankle. 3. No abdominal aortic aneurysm. Peripheral mural thrombus with approximately 50% stenosis of the renal and infrarenal abdominal aorta. 4. Celiac and SMA are patent. 5. Nonvascular findings discussed above.
[2022-07-20 08:28] LABS: Blood Urea Nitrogen 24 mg/dL (8-23)
[2022-07-20] MEDS: iohexol 350 mg/mL 100 mL Btl IV (08:48)
== END 2022-07-20 07:43 | disposition home or self-care (01) ==
LOC: RAD 07:43
PROVIDERS: PCP Internal Medicine; Visit Provider Surgery
DX: I73.9 Peripheral vascular disease, unspecified (principal)
CPT/HCPCS: 75635; 82565; 84520

== ENCOUNTER 2024-03-27 14:21 | Outpatient (CLI) | payer OTHER, SELFPAY ==
[2024-03-27 15:07] LABS: Alanine Aminotransferase 14 U/L (0-41); Albumin Level 4.5 g/dL (3.5-5.2); Alkaline Phosphatase 69 U/L (40-130); Anion Gap 17.7 (5-19); Aspartate Amino Transferase 13 U/L (0-40); Blood Urea Nitrogen 35 mg/dL (8-23); Calcium 9.6 mg/dL (8.5-10.5); Carbon Dioxide 23 mmol/L (22-29); Chloride 102 mmol/L (98-107); Chol HDL Ratio 3.63 mg/dL (1.0-5.00); Cholesterol 127 mg/dL (0-200); Globulin 2.8 g/dL (1.3-4.6); Glucose 101 mg/dL (65-115); HDL Cholesterol 35 mg/dL (60-100); LDL Cholesterol Calculated 31 mg/dL (50-129); LDL HDL Ratio 0.89 RATIO (0.00-3.22); Osmolality Calculated 294 mOsm/kg (285-295); Potassium 4.7 mmol/L (3.5-5.1); Sodium 138 mmol/L (136-145); Total Bilirubin 0.3 mg/dL (0.15-1.2); Total Protein 7.3 g/dL (6.6-8.7); Triglycerides 303 mg/dL (0-150)
== END 2024-03-27 14:22 | disposition home or self-care (01) ==
LOC: LAB 14:22
PROVIDERS: PCP Internal Medicine; Visit Provider Internal Medicine
DX: I25.10 Atherosclerotic heart disease of native coronary artery without angina pectoris (principal)
CPT/HCPCS: 36415; 80053; 80061